=== PATIENT | male | born 1985 | race American Indian/Alaskan Native ===

== ENCOUNTER 2017-11-12 12:35 | Emergency (ER) | payer BC ==
[2017-11-12 14:24] LABS: BASO % 0.4 % (0.0-2.0); EOS # 0.1 K/uL (0.0-0.7); EOS % 1.1 % (0.0-4.0); HEMOGLOBIN 15.7 g/dL (12.0-18.0); LYMPH # 1.9 K/uL (1.0-4.3); LYMPH % 26.5 % (20.0-40.0); MEAN CELL VOLUME 86.7 fl (80.0-94.0); MEAN CORPUSCULAR HEMOGLOBIN 28.7 pg (27.0-31.0); MEAN CORPUSCULAR HGB CONC 33.1 g/dL (33.0-37.0); MEAN PLATELET VOLUME 9.1 fl (7.2-11.7); MONO # 0.6 K/uL (0.0-0.8); MONO % 8.4 % (0.0-10.0); NEUT # 4.5 K/uL (1.8-7.0); NEUT % 63.6 % (50.0-75.0); NRBC % 2.4 % (0.0-0.0); RBC 5.49 Mil/uL (4.40-5.90); RED CELL DISTRIBUTION WIDTH 14.2 % (11.5-14.5)
[2017-11-12 14:38] LABS: INR 1.1 (0.9-1.2)
[2017-11-12 14:39] LABS: PARTIAL THROMBOPLASTIN TIME 33.5 Seconds (25.6-37.1)
[2017-11-12 14:46] LABS: ALB/GLOB RATIO 1.3 (1.0-2.1); ALBUMIN 4.2 g/dL (3.5-5.0); ALT/SGPT 30 U/L (21-72); AST/SGOT 25 U/L (17-59); BLOOD UREA NITROGEN 15 mg/dl (9-20); CALCIUM 9.2 mg/dL (8.4-10.2); GFR AFRICAN-AMERICAN > 60; GFR NON-AFRICAN AMERICAN > 60
[2017-11-12 14:56] LABS: CK-MB 0.85 ng/mL (0.0-3.38)
--- NOTE | 2017-11-12 15:40 | ED PDOC ---
HPI: Chest Pain Time Seen by Provider: 11/12/17 13:05 Chief Complaint (Nursing): Chest Pain Chief Complaint (Provider): Chest Pain History Per: Patient History/Exam Limitations: no limitations Onset/Duration Of Symptoms: Other (x today) Current Symptoms Are (Timing): Still Present Additional Complaint(s): Mr. Jin is a 32 year old male who presents to the ED complaining of chest pain , onset 08:00 this morning. Patient reports chest pain starts in the middle with no radiation. Denies headache, nausea, vomiting, sweating, dizziness. Feels he "swallowed a pill and got stuck". Patient states worse when leaning forward. Patient states he went to urgent care today. PMD: Cindy Past Medical History Reviewed: Historical Data, Nursing Documentation, Vital Signs Vital Signs: Last Vital Signs Temp 97 F L 11/12/17 12:44 Pulse 56 L 11/12/17 15:52 Resp 18 11/12/17 15:52 BP 136/77 11/12/17 15:52 Pulse Ox 98 11/12/17 16:22 - Medical History PMH: No Chronic Diseases - Surgical History Surgical History: No Surg Hx - Family History Family History: States: Hypertension (Dad; never put on medication for it) - Social History Current smoker - smoking cessation education provided: No Alcohol: None Drugs: Denies - Allergies Allergies/Adverse Reactions: Allergies Allergy/AdvReac Type Severity Reaction Status Date / Time No Known Allergies Allergy Verified 11/12/17 12:44 TRAVIS Risk Score for UA/NSTEMI - TRAVIS Risk Score Age > 64: NO 3 or more CAD Risk Factors: NO Known CAD (Stenosis greater than 50%): NO Aspirin use in past 7 days: NO Severe Angina: NO EKG ST changes greater than 0.5mm: NO Positive Cardiac Marker: NO TRAVIS Score: 0 Risk %: 5% Review of Systems ROS Statement: Except As Marked, All Systems Reviewed And Found Negative Constitutional: Negative for: Other (sweating) Cardiovascular: Positive for: Chest Pain (in the middle) Gastrointestinal: Negative for: Nausea, Vomiting Neurological: Negative for: Dizziness Physical Exam - Reviewed Nursing Documentation Reviewed: Yes Vital Signs Reviewed: Yes - Physical Exam Appears: Positive for: Well, Non-toxic Head Exam: Positive for: ATRAUMATIC, NORMAL INSPECTION, NORMOCEPHALIC Skin: Positive for: Normal Color, Warm, Dry Eye Exam: Positive for: Normal appearance, EOMI, PERRL ENT: Positive for: Normal ENT Inspection Neck: Positive for: Normal Cardiovascular/Chest: Positive for: Bradycardia Respiratory: Positive for: Normal Breath Sounds Gastrointestinal/Abdominal: Positive for: Normal Exam Back: Positive for: Normal Inspection Extremity: Positive for: Normal ROM Neurologic/Psych: Positive for: Alert, Oriented - Laboratory Results Result Diagrams: 11/12/17 14:00 11/12/17 14:00 - ECG O2 Sat by Pulse Oximetry: 98 (RA) Pulse Ox Interpretation: Normal Medical Decision Making Medical Decision Making: Time: 13:23 Plan: - EKG - CK-MB - CMP - Troponin I - CBC - Partial Thromboplastin Time - Prothrombin Time EKG show Normal Sinus Rhythm, bradycardia. Troponin I 0.0340 [High]. Re-do Troponin test Time: 15:01 - Troponin I Time: 15:32 - Chest X-Ray Time: 15:47 Chest X-Ray FINDINGS: LUNGS: No active pulmonary disease. PLEURA: No significant pleural effusion identified. No pneumothorax apparent. CARDIOVASCULAR: Normal. OSSEOUS STRUCTURES: No significant abnormalities. VISUALIZED UPPER ABDOMEN: Normal. OTHER FINDINGS: None. IMPRESSION: No evidence of acute infiltrates or effusions. Scribe Attestation: Documented by Dmitriy Tran, acting as a scribe for Alicia Dan PA-C Provider Scribe Attestation: All medical record entries made by the Scribe were at my direction and personally dictated by me. I have reviewed the chart and agree that the record accurately reflects my personal performance of the history, physical exam, medical decision making, and the department course for this patient. I have also personally directed, reviewed, and agree with the discharge instructions and disposition. Disposition - Clinical Impression Clinical Impression: Chest pain - Patient ED Disposition Is Patient to be Admitted: No Counseled Patient/Family Regarding: Diagnosis, Need For Followup - Disposition Referrals: Jose Kelley MD [Staff Provider] - Disposition: Routine/Home Disposition Time: 19:44 Condition: GOOD Additional Instructions: No exertion until seen by cardiology. Instructions: Chest Pain (DC) Forms: [email or web address] ([place]akh)
[2017-11-12 15:54] VITALS: RESP 18
--- NOTE | 2017-11-12 16:07 | RAD ---
HISTORY: chest pain, central COMPARISON: No prior. TECHNIQUE: Chest PA and lateral FINDINGS: LUNGS: No active pulmonary disease. PLEURA: No significant pleural effusion identified. No pneumothorax apparent. CARDIOVASCULAR: Normal. OSSEOUS STRUCTURES: No significant abnormalities. VISUALIZED UPPER ABDOMEN: Normal. OTHER FINDINGS: None. IMPRESSION: No evidence of acute infiltrates or effusions.
[2017-11-12 19:52] VITALS: BP 148/80; PULSE 58; TEMP 98.4; O2SAT 99
--- NOTE | 2017-11-13 10:16 | CARD ---
APPROVED REPORT EKG Measurement Heart [id number] <Conclusion> Sinus bradycardia with sinus arrhythmia Otherwise normal ECG
== END 2017-11-12 19:52 | disposition home or self-care (01) ==
LOC: H.ER 12:35
DX: R07.89 Other chest pain (principal)